=== PATIENT | male | born 1960 | race Caucasian/White ===

== ENCOUNTER 2025-01-31 09:22 | Emergency (ER) | payer OTHER ==
[2025-01-31 09:34] VITALS: BP 150/88; PULSE 76; RESP 18; TEMP 97.9; BMI 32.8
== END 2025-01-31 10:07 | disposition home or self-care (01) ==
LOC: JERFT 09:22
DX: Z48.00 Encounter for change or removal of nonsurgical wound dressing (principal)
CPT/HCPCS: 99281-25